=== PATIENT | male | born 1970 | race Caucasian/White ===

== ENCOUNTER 2018-05-21 06:07 | Day surgery (SDC) | payer OTHER ==
[2018-05-21] MEDS ORDERED: LR 1,000 ML IV ONE (06:33)
--- NOTE | 2018-05-21 06:53 | PDHPUP ---
History & Physical Update H&P update statement: This history and physical update is based on an assessment of the patient which was completed after admission or registration (within 24 hours), but prior to the surgery/procedure. H&P update: H&P reviewed & patient examined, no change in patient's condition since H&P completed
--- NOTE | 2018-05-21 07:19 | PDANEPAE ---
ANE History of Present Illness Colonoscopy ANE Past Medical History - Cardiovascular History Hx Hypertension: No Hx Arrhythmias: No Hx Chest Pain: No Hx Coronary Artery / Peripheral Vascular Disease: No Hx CHF / Valvular Disease: No Hx Palpitations: No - Pulmonary History Hx COPD: No Hx Asthma/Reactive Airway Disease: No Hx Recent Upper Respiratory Infection: No Hx Oxygen in Use at Home: No Hx Sleep Apnea: No Sleep Apnea Screening Result - Last Documented: Negative - Neurologic History Hx Cerebrovascular Accident: No Hx Seizures: No Hx Dementia: No - Endocrine History Hx Diabetes: No - Renal History Hx Renal Disorders: No - Liver History Hx Hepatic Disorders: No - Neurological & Psychiatric Hx Hx Neurological and Psychiatric Disorders: No - Cancer History Hx Cancer: No - Congenital Disorder History Hx Congenital Disorders: No - GI History Hx Gastrointestinal Disorders: No Gastrointestinal History Comment: HEMORRHOIDS - Chronic Pain History Chronic Pain: No - Surgical History Prior Surgeries: KOBI ING HERNIA 09/2017. LT KNEE ACL REPAIR. KOBI CLAVICLE ANE Review of Systems Review of systems is: negative Review of Systems: - Exercise capacity METS (RN): 6 METS ANE Patient History - Allergies Allergies/Adverse Reactions: No Known Allergies Allergy (Unverified 05/18/18 12:26) - Home Medications Home medications: home medication list seen and reviewed Home Medications: NK [No Known Home Meds] 05/18/18 [Last Taken Unknown] - NPO status NPO Since - Liquids (Date): 05/21/18 NPO Since - Liquids (Time): 04:30 NPO Since - Solids (Date): 05/20/18 NPO Since - Solids (Time): 10:00 - Anes Hx Anes Hx: no prior problems - Smoking Hx Smoking Status: Former smoker - Family Anes Hx Family Anes Hx: none ANE Labs/Vital Signs - Vital Signs Vital Signs: reviewed preoperatively; see RN documention for details Blood Pressure: 126/84 Heart Rate: 72 Respiratory Rate: 16 O2 Sat (%): 94 Height: 171.45 cm Weight: 77.111 kg ANE Physical Exam - Airway Neck exam: FROM Mallampati Score: Class 2 - Pulmonary Pulmonary: no respiratory distress - Cardiovascular Cardiovascular: regular rate and rhythym - ASA Status ASA Status: I ANE Anesthesia Plan Total IV Anesthesia: Yes
[2018-05-21] MEDS ORDERED: LIDOCAINE 2% 100 MG/5 ML SYR ONE (07:29)
[2018-05-21] MEDS ORDERED: PROPOFOL/EMULSION 500 MG/50 ML BOTTLE IV ONE (07:29)
--- NOTE | 2018-05-21 07:31 | POSTOPPROG ---
Post Op Note Date of Operation: 05/21/18 Surgeon: Attila Gilliam Anesthesiologist: Rosalio Gallardo Anesthesia: IV Sedation Pre-op Diagnosis: Rectal bleeding Post-op Diagnosis: Same Procedure: Colonoscopy Inf/Abcess present in the surg proc area at time of surgery?: No EBL: Minimal
[2018-05-21] MEDS ORDERED: fentaNYL 100 MCG/2 ML INJ IVP PRN (07:50)
[2018-05-21] MEDS ORDERED: DEXAMETHASONE 4 MG/ML VIAL IVP PRN (07:50)
[2018-05-21] MEDS ORDERED: oxyCODONE IR 5 MG TAB PO PRN (07:50)
[2018-05-21] MEDS ORDERED: NALOXONE HCL 0.4 MG/ML INJ IVP PRN (07:50)
[2018-05-21] MEDS ORDERED: HYDROCODONE/APAP 5/325 TAB PO PRN (07:50)
[2018-05-21] MEDS ORDERED: ACETAMINOPHEN 500 MG TAB PO PRN (07:50)
[2018-05-21] MEDS ORDERED: ONDANSETRON 4 MG/2 ML VIAL IVP PRN (07:50)
[2018-05-21] MEDS ORDERED: MEPERIDINE 25 MG/0.5 ML AMP IVP PRN (07:50)
--- NOTE | 2018-05-21 07:50 | POSTANESTH ---
Post Anesthetic Evaluation Cardiovascular Status: Normal, Stable, Similar to Pre-Op Cond Respiratory Status: Normal, Stable, Similar to Pre-op Cond. Level of Consciousness/Mental Status: Moderately Sleepy Pain Control: Adequate, Prn Tx Ordered Nausea/Vomiting Control: Adequate, Prn Tx Ordered Complications Possibly Related to Anesthesia: None Noted
[2018-05-21] MEDS ORDERED: PROPOFOL 200 MG/20 ML VIAL ONE (08:00)
[2018-05-21 09:45] VITALS: BP 120/85
== END 2018-05-21 09:30 | disposition home or self-care (01) ==
LOC: FSGY 06:07
PROVIDERS: ATTEND Surgery
PROC: 0DBP8ZX Excision of Rectum, Via Natural or Artificial Opening Endoscopic, Diagnostic (ICD-10-PCS; principal; 2018-05-21 07:30)
PROC: 0DBM8ZX Excision of Descending Colon, Via Natural or Artificial Opening Endoscopic, Diagnostic (ICD-10-PCS; principal; 2018-05-21 07:30)
DX: Z12.11 Encounter for screening for malignant neoplasm of colon (principal); K62.1 Rectal polyp; D12.4 Benign neoplasm of descending colon; K64.8 Other hemorrhoids
CPT/HCPCS: J2001; J2704